=== PATIENT | female | born 1990 | race Caucasian/White ===

== ENCOUNTER 2020-11-10 17:40 | Emergency (ER) | payer OTHER, BC ==
[~2020-11-10] VITALS: Ht 172.7 cm; Wt 85.6 kg
[2020-11-10] MEDS ORDERED: DOXY100C PO (17:52)
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
[2020-11-10] MEDS ORDERED: NEOSPORIN OINT 0.9 GM PKT TOP ONE (23:30)
[2020-11-11 00:27] VITALS: BP 123/57
--- NOTE | 2020-11-12 19:54 | ECGEPIP ---
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
== END 2020-11-11 00:29 | disposition home or self-care (01) ==
LOC: M ED 17:40
DX: S20.214A Contusion of middle front wall of thorax, initial encounter (principal); S00.83XA Contusion of other part of head, initial encounter; S60.812A Abrasion of left wrist, initial encounter; V49.49XA Driver injured in collision with other motor vehicles in traffic accident, initial encounter; Y92.410 Unspecified street and highway as the place of occurrence of the external cause